=== PATIENT | male | born 2005 | race Caucasian/White ===

== ENCOUNTER 2025-07-11 12:37 | Outpatient (CLI) | payer BC | END 2025-07-11 12:38 | disposition home or self-care (01) | LOC: SCSRAD 12:37 | PROVIDERS: ATTEND Family Medicine | DX: S39.012D Strain of muscle, fascia and tendon of lower back, subsequent encounter (principal); M51.369 Other intervertebral disc degeneration, lumbar region without mention of lumbar back pain or lower extremity pain | CPT/HCPCS: 72120 ==

== ENCOUNTER 2025-07-24 11:45 | Outpatient (CLI) | payer BC | END 2025-07-24 11:46 | disposition home or self-care (01) | LOC: SCSMRI 11:45 | PROVIDERS: ATTEND Family Medicine | DX: M54.50 Low back pain, unspecified (principal); M48.061 Spinal stenosis, lumbar region without neurogenic claudication; M48.07 Spinal stenosis, lumbosacral region | CPT/HCPCS: 72148 ==